=== PATIENT | male | born 1970 | race Caucasian/White ===

== ENCOUNTER 2021-10-18 13:53 | Emergency (ER) | payer BC, SELFPAY ==
--- NOTE | ~2021-10-18 | XR_ITS ---
XR chest 2V DATE: 10/18/2021 14:45 INDICATION: Cough and wheezing for 3 days TECHNIQUE: PA and lateral views COMPARISON: 05/22/2011 two-view chest FINDINGS: Heart size is within normal limits. Mild aortic unfolding. No hilar or mediastinal enlargem ent. No pulmonary infiltrate or consolidation, pleural effusion or pulmonary vascular congestion or pneumo thorax is detected. There is degenerative spurring of the thoracic spine. IMPRESSION: No active cardiopulmonary disease Reviewed, dictated and finalized at location A.
[2021-10-18 13:58] VITALS: BP 134/71; PULSE 73; RESP 16; TEMP 36.7; O2SAT 98
--- NOTE | 2021-10-18 14:20 | ED.URI ---
HPI - URI/Sore Throat General Chief Complaint: Upper Respiratory Infection Stated Complaint: uri Time Seen by Provider: 10/18/21 14:20 Source: patient and RN notes reviewed Mode of arrival: ambulatory Limitations: no limitations History of Present Illness HPI Narrative: 51-year-old male presented for complaint of cough and sinus pressure and congestion for about 3 days. He states cough is worse at night and has been sleeping sitting up. States cough is nonproductive, endorses occasional wheezing. He has been taking DayQuil and Advil for symptoms. Endorses a history of bronchitis and states his symptoms feel the same. Denies chest pain, palpitations, shortness of breath, nausea, vomiting, diarrhea, body aches, fevers or chills. has taken a negative home COVID test yesterday. He has not been vaccinated for flu, is not boosted for COVID. Denies sick contacts. MD elicited complaint: cough Related Data Allergies Allergy/AdvReac Type Severity Reaction Status Date / Time No Known Allergies Allergy Verified 10/18/21 14:06 Review of Systems Review of Systems: CONSTITUTIONAL: Denies malaise, chills, sweats, fever EYES: Denies visual changes, redness, or discharge ENT: Reports rhinorrhea, congestion, sinus pain CARDIOVASCULAR: Denies chest pain, palpitations, edema RESPIRATORY: Reports cough, post nasal drainage. Denies dyspnea GASTROINTESTINAL: Denies abdominal pain, nausea, vomiting, diarrhea PMFSH Past Medical History Medical History HTN (hypertension) Family History Family History Mother Cerebrovascular accident, Onset Age: 84 Social History Social History Smoking status: Never smoker Alcohol intake: never Exam Narrative: GENERAL: Ill-appearing, nontoxic no acute distress. HEAD: Normocephalic EYES: PERRLA, conjunctivae clear ENT: Mucous membranes moist. TM pearly esparza with dull light reflex bilaterally; no tragal tenderness. Oropharynx erythematous without lesions or exudate, no drooling, no hoarseness, no trismus, uvula midline. No tripod positioning, muffled voice, soft palate or pharyngeal wall bulging NECK: Supple. No lymphadenopathy CHEST: Clear to auscultation, breath sounds equal. No wheezing, rhonchi, rales, or stridor. No respiratory distress, speaks in full sentences. HEART: Regular rate and rhythm. No murmur heard. SKIN: Warm, dry, no rash. NEURO: Alert and oriented x3. PSYCH: Normal mood and affect Course Course Emergency Course: Patient is aware of diagnosis, understands and agrees to treatment plan. Anticipatory guidance given. Patient agrees to follow-up as directed and is aware of reasons to seek care at the emergency department. Portions of this record may have been created with voice recognition software Level of Care: Express Care Visit Vital Signs Vital signs: Vital Signs Temperature 98.0 F 10/18/21 13:58 Pulse Rate 73 10/18/21 13:58 Respiratory Rate 16 10/18/21 13:58 Blood Pressure 134/71 10/18/21 13:58 Pulse Oximetry 98 10/18/21 13:58 Oxygen Delivery Room Air 10/18/21 13:58 Temperature 98.0 F 10/18/21 13:58 Pulse Rate 73 10/18/21 13:58 Respiratory Rate 16 10/18/21 13:58 Blood Pressure 134/71 10/18/21 13:58 Pulse Oximetry 98 10/18/21 13:58 Oxygen Delivery Room Air 10/18/21 13:58 reviewed MDM - URI/Sore Throat MDM Narrative Medical decision making narrative: covid negative CXR negative, reviewed with pt. advised on supportive treatments and follow-up with PCP. Verbalizes understanding. Differential Diagnosis Differential diagnosis: Likely upper respiratory infection, sinusitis and viral infection Imaging Data Radiologist's impression: Ordering Physician: Domenica Dial APRN Date of Service: 10/18/21 Procedure(s): XR chest 2V Access[facility] N
== END 2021-10-18 15:10 | disposition home or self-care (01) ==
PROVIDERS: Emergency Provider Nurse Practitioner Family; PCP Emergency Medicine
DX: J40 Bronchitis, not specified as acute or chronic (principal); Z20.822 Contact with and (suspected) exposure to COVID-19; I10 Essential (primary) hypertension
CPT/HCPCS: 71046; 87426; 99213; C9803; G0463

== ENCOUNTER 2022-04-26 19:34 | Emergency (ER) | payer BC, SELFPAY ==
[2022-04-26 19:41] VITALS: BP 137/78; PULSE 86; RESP 20; TEMP 36.8; O2SAT 99
--- NOTE | 2022-04-26 19:42 | ED.URI ---
HPI - URI/Sore Throat General Chief Complaint: Upper Respiratory Infection Stated Complaint: uri Time Seen by Provider: 04/26/22 19:42 Source: patient, RN notes reviewed and old records reviewed Mode of arrival: ambulatory Limitations: no limitations History of Present Illness HPI Narrative: 51-year-old male presents to the [facility] with complaints sinus congestion, sinus drainage is for 6 days. Use Flonase 1 time today. states he did tell visit with a provider his insurance was [employer] Related Data Home Medications Medication Instructions Recorded Confirmed ipratropium bromide 21 mcg (0.03 intranasal 04/26/22 %) nasal spray Allergies Allergy/AdvReac Type Severity Reaction Status Date / Time No Known Allergies Allergy Verified 04/26/22 19:36 Review of Systems Review of Systems: All systems reviewed & are unremarkable except as noted in HPI and below Constitutional: Constitutional: Reports no additional constitutional complaints Eyes: Eyes: Reports no additional eye complaints ENT: Reports as per HPI Cardiovascular: Cardiovascular: Reports no additional cardiovascular complaints, Denies chest pain and Denies dyspnea Respiratory: Respiratory: Reports no additional respiratory complaints, Denies chest congestion, Denies cough and Denies dyspnea Gastrointestinal: Gastrointestinal: Reports no additional gastrointestinal complaints, Denies abdominal pain, Denies nausea and Denies vomiting Musculoskeletal: Musculoskeletal: Reports no additional musculoskeletal complaints Integumentary/Breasts: Skin/Breast: Reports system reviewed and no additional complaints, except as docu Neurologic: Reports system reviewed and no additional complaints, except as documented Psychiatric: Psychiatric: Reports no additional psychiatric complaints Allergic/Immunologic: Allergic/Immunologic: Reports no additional allergic/immunologic complaints [facility] Past Medical History Medical History HTN (hypertension) Family History Family History Mother Cerebrovascular accident, Onset Age: 84 Social History Social History Smoking status: Never smoker Alcohol intake: never Comments At the time of my signature, I reviewed and agree with the nursing past medical, surgical, social, and family history. There is no relevant family history pertinent to the patient complaint. Exam Const: General: cooperative, healthy appearing, comfortable, no acute distress, well developed, alert, average body habitus and well nourished Nutritional Appearance: average body habitus and well nourished Orientation/consciousness: patient oriented x3 Limitations: no limitations HENMT: Head: normal to inspection Ears: hearing grossly normal bilaterally and external ears normal Face/Nose/Sinus: Normal external nose present, Normal nares present, Normal nasal mucous membranes and turbinates present, Nasal discharge present clear bilateral and normal facial exam Face and sinus: normal facial exam Mouth: Yes Normal oral and palatal mucosa present, Yes lip normal and Yes moist mucous membranes Throat: posterior oropharynx normal and uvula midline Eyes: General: appearance normal, both eyes and all related structures Alignment and Position: alignment normal Periorbital: periorbital findings normal Conjunctivae: conjunctivae normal Pupils: Equal, round and reactive pupils present EOM: EOMs intact bilaterally Neck: Neck: normal visual inspection, full ROM, no lymphadenopathy and no meningeal signs Chest: Chest palpation & inspection: normal inspection of the chest Resp: Effort & Inspection: normal respiratory effort and able to speak in complete sentences Auscultation: clear to auscultation bilaterally, no crackles, no rales, no rhonchi and no wheezes Cardio: Rate:
== END 2022-04-26 19:59 | disposition home or self-care (01) ==
PROVIDERS: Emergency Provider Nurse Practitioner; PCP Emergency Medicine
DX: J06.9 Acute upper respiratory infection, unspecified (principal); I10 Essential (primary) hypertension
CPT/HCPCS: 99211; G0463